=== PATIENT | male | born 1940 | race Caucasian/White ===

== ENCOUNTER 2021-01-04 12:40 | Outpatient (CLI) | payer MEDICARE, BC ==
[~2021-01-04 12:40] MED LIST: AMA1T PO; ASPI81TA52 PO; CHOL10002 PO; DULO-31 PO; FLO0.4C PO; LOSA100T57 PO; METF500T PO; NAPR220C15 PO; ROSU20TA2 PO; SAXA5TAB PO; VITA-268 PO
== END 2021-01-04 23:59 | disposition home or self-care (01) ==
LOC: VAS 12:40
PROVIDERS: ATTEND Orthopaedic Surgery
DX: M50.10 Cervical disc disorder with radiculopathy, unspecified cervical region (principal); M48.02 Spinal stenosis, cervical region; R29.898 Other symptoms and signs involving the musculoskeletal system
CPT/HCPCS: 93971

== ENCOUNTER 2021-09-19 10:22 | Day surgery (SDC) | payer MEDICARE, BC ==
[2021-09-14 15:54] LABS: BASOPHILS % (AUTO) 0.8 % (0-1); EOSINOPHILS # (AUTO) 0.1 X10'3 (0-0.9); EOSINOPHILS % (AUTO) 1.2 % (0-6); LYMPHOCYTES # (AUTO) 1.1 X10'3 (1.1-4.8); LYMPHOCYTES % (AUTO) 18.5 % (21-51); MEAN CORPUSCULAR HEMOGLOBIN 28.6 PG (27.0-31.0); MEAN CORPUSCULAR HGB CONC 33.3 g/dL (33.0-36.5); MEAN CORPUSCULAR VOLUME 85.8 FL (78-98); MEAN PLATELET VOLUME 8.4 FL (7.4-10.4); MONOCYTES # (AUTO) 0.4 X10'3 (0-0.9); NEUTROPHILS # (AUTO) 4.3 X10'3 (1.8-7.7); NEUTROPHILS % (AUTO) 72.5 % (42-75); PLATELET COUNT 234 X10'3 (140-440); RED CELL DISTRIBUTION WIDTH 16.3 % (11.5-14.5); WHITE BLOOD COUNT 5.9 X10'3 (4.5-11.0)
[2021-09-14 16:04] LABS: ALBUMIN 3.9 G/DL (3.4-5.0); ANION GAP 11 (8-16); BLOOD UREA NITROGEN 18 MG/DL (7-18); BUN/CREATININE RATIO 24.7 (5.4-32.0); CALCIUM 8.8 MG/DL (8.5-10.1); CHLORIDE 104 MMOL/L (99-107); CREATININE 0.73 MG/DL (0.60-1.10); GLUCOSE 158 MG/DL (70-104); POTASSIUM 4.4 MMOL/L (3.5-5.1); SODIUM 141 MMOL/L (135-145); TOTAL CARBON DIOXIDE 25.9 MMOL/L (24-32); eGFR > 90 ML/MIN
[2021-09-14 16:07] LABS: PARTIAL THROMBOPLASTIN TIME 26 SECONDS (22-32)
[2021-09-19] VITALS (8 sets, daily range): BP systolic 106–141; BP diastolic 53–75
[~2021-09-19] VITALS: Ht 182.9 cm; Wt 72.8 kg
[2021-09-19] MEDS ORDERED: LORazepam 0.5 MG tablet PO PRN (10:45)
[2021-09-19] MEDS ORDERED: diphenhydrAMINE 25mg capsule PO PRN (10:45)
[2021-09-19] MEDS ORDERED: normal saline 1,000 ML IV SCH (10:45)
[2021-09-19] MEDS ORDERED: VALS320T17 PO (11:45)
[2021-09-19] MEDS ORDERED: iohexol 350MG/ML 100ml bottle IV ONE (11:49)
[2021-09-19] MEDS ORDERED: LIDOcaine 1% (10mg/ml)w/preservative injection 20ml MDV ONE (11:49)
[2021-09-19] MEDS ORDERED: midazolam 1 mg/ML 2ml injection ONE (11:49)
[2021-09-19] MEDS ORDERED: fentaNYL/PF 50MCG/1 ML 2ML syringe ONE (11:49)
[2021-09-19] MEDS ORDERED: nitroGLYCERIN-Tridil 50MG/D5W 250 ML IV ONE (12:03)
[2021-09-19] MEDS ORDERED: heparin 1,000unit/ml 10ml vial 10 ML ONE (12:03)
[2021-09-19] MEDS ORDERED: verapamil 2.5 mg/ml inj IV ONE (12:03)
[2021-09-19] MEDS ORDERED: ondansetron/PF 4mg/2ml inj IV PRN (13:40)
[2021-09-19] MEDS ORDERED: HYDROcodone/acetaminophen 10/325mg tab PO PRN (13:40)
[2021-09-19] MEDS ORDERED: HYDROcodone/acetaminophen 5mg/325mg tablet PO PRN (13:40)
[2021-09-19] MEDS ORDERED: OXAZEpam 15mg capsule PO PRN (13:40)
[2021-09-19] MEDS ORDERED: proCHLORperazine 10 MG/2 ml inj IV PRN (13:40)
== END 2021-09-19 16:10 | disposition home or self-care (01) ==
LOC: SSTAY O 10:22
PROVIDERS: ATTEND Internal Medicine Interventional Cardiology
DX: I35.0 Nonrheumatic aortic (valve) stenosis (principal); I25.10 Atherosclerotic heart disease of native coronary artery without angina pectoris; I10 Essential (primary) hypertension; E11.9 Type 2 diabetes mellitus without complications; I65.29 Occlusion and stenosis of unspecified carotid artery; E78.5 Hyperlipidemia, unspecified; Z79.84 Long term (current) use of oral hypoglycemic drugs; Z79.899 Other long term (current) drug therapy; Z79.82 Long term (current) use of aspirin; Z95.5 Presence of coronary angioplasty implant and graft; Z87.891 Personal history of nicotine dependence; Z88.5 Allergy status to narcotic agent; Z85.46 Personal history of malignant neoplasm of prostate
CPT/HCPCS: 36415; 80048; 85025; 85610; 85730; 93005; 93454; 99152; C1769; C1894; J1644; J2001; J2250; J3010; Q0163; Q9967; A4620; A5120; J3490

== ENCOUNTER 2021-09-27 11:04 | Outpatient (CLI) | payer MEDICARE, BC ==
[~2021-09-27] VITALS: Ht 182.9 cm; Wt 72.6 kg
[~2021-09-27 11:04] MED LIST changes: -LOSA100T57 PO; -SAXA5TAB PO; +VALS320T17 PO
[2021-09-27] MEDS ORDERED: IODIXANOL 320 MG/ML INFUS..BTL 50ML IV ONE (11:34)
[2021-09-27] MEDS ORDERED: IODIXANOL 320 MG/ML INFUS..BTL 100ML IV ONE (11:34)
[2021-09-27] MEDS ORDERED: albuterol 2.5 MG/3 ML nebule NEB ONE (12:10)
[2021-10-20] MEDS ORDERED: PRED2.5T4 PO (10:41)
[2021-10-20] MEDS ORDERED: EMPA25TA PO (10:41)
[2021-10-20] MEDS ORDERED: LATA2.5D14 EACHEYE (10:41)
[2021-10-20] MEDS ORDERED: ACET-1008 PO (10:41)
== END 2021-09-27 23:59 | disposition home or self-care (01) ==
LOC: RAD 11:04
PROVIDERS: ATTEND Internal Medicine Cardiovascular Disease
DX: K57.90 Diverticulosis of intestine, part unspecified, without perforation or abscess without bleeding (principal); J43.9 Emphysema, unspecified; I70.0 Atherosclerosis of aorta; G95.89 Other specified diseases of spinal cord; I51.7 Cardiomegaly; J98.4 Other disorders of lung; R91.1 Solitary pulmonary nodule; R94.2 Abnormal results of pulmonary function studies; Z20.822 Contact with and (suspected) exposure to COVID-19
CPT/HCPCS: 71046; 71275; 74174; 87635; 94060; 94727; 94729; 94760; C9803; Q9967

== ENCOUNTER 2021-10-26 06:09 | Inpatient (IN) | payer MEDICARE, BC ==
[2021-10-20 10:53] LABS: EOSINOPHILS # (AUTO) 0.1 X10'3 (0-0.9); EOSINOPHILS % (AUTO) 1.5 % (0-6); LYMPHOCYTES # (AUTO) 0.9 X10'3 (1.1-4.8); LYMPHOCYTES % (AUTO) 18.3 % (21-51); MEAN CORPUSCULAR HEMOGLOBIN 28.5 PG (27.0-31.0); MEAN CORPUSCULAR HGB CONC 32.8 g/dL (33.0-36.5); MEAN CORPUSCULAR VOLUME 86.8 FL (78-98); MEAN PLATELET VOLUME 8.7 FL (7.4-10.4); MONOCYTES # (AUTO) 0.4 X10'3 (0-0.9); MONOCYTES % (AUTO) 8.4 % (2-12); NEUTROPHILS # (AUTO) 3.4 X10'3 (1.8-7.7); NEUTROPHILS % (AUTO) 70.8 % (42-75); PRE OP HEMATOCRIT 42.2 % (42.0-52.0); PRE OP HEMOGLOBIN 13.8 g/dL (14.0-17.9); PRE OP PLATELET COUNT 213 X10'3 (140-440); RED BLOOD COUNT 4.86 X10'6 (4.70-6.10); RED CELL DISTRIBUTION WIDTH 15.4 % (11.5-14.5)
[2021-10-20 11:04] LABS: CLARITY,URINE CLEAR (Clear); COLOR,URINE YELLOW (Yellow); GLUCOSE, URINE >=1000 mg/dl (Neg); KETONES,URINE NEGATIVE (Neg); LEUKOCYTE ESTERASE ,URINE NEGATIVE (Neg); NITRITES, URINE NEGATIVE (Neg); OCCULT BLOOD,URINE NEGATIVE (Neg); PROTEIN,URINE NEGATIVE (Neg); UROBILINOGEN,URINE 0.2 E.U/dL (0.2-1.0)
[2021-10-20 11:07] LABS: UA COLLECTION TYPE CLN CATCH MIDSTREAM
[2021-10-20 11:10] LABS: PRE OP PROTIME 10.8 SECONDS (9.0-12.0); SQUAMOUS EPITHELIAL CELL,UR FEW /LPF (FEW)
[2021-10-20 11:11] LABS: RBC,URINE 0-2 /HPF (0-2); WBC,URINE 0-4 /HPF (0-4)
[2021-10-20 11:12] LABS: BACTERIA,URINE NONE SEEN /HPF (Neg); HEMOGLOBIN A1C 8.7 % (4.5-6.2)
[2021-10-20 11:15] LABS: ALBUMIN 4.1 G/DL (3.4-5.0); ALBUMIN/GLOBULIN RATIO 1.5 (1.1-1.5); ALKALINE PHOSPHATASE 81 IU/L (46-116); BLOOD UREA NITROGEN 20 MG/DL (7-18); CHLORIDE 104 MMOL/L (99-107); PRE OP ALT 36 U/L (30-65); PRE OP ANION GAP 7 (8-16); PRE OP AST 21 U/L (10-37); PRE OP BILIRUB, TOTAL 0.5 MG/DL (0.0-1.0); PRE OP GLUCOSE 172 MG/DL (70-104); PRE OP POTASSIUM 4.4 MMOL/L (3.4-5.1); PRE OP SODIUM 138 MMOL/L (135-145); TOTAL CARBON DIOXIDE 26.8 MMOL/L (24-32); TOTAL PROTEIN 6.9 G/DL (6.4-8.2); eGFR > 90 ML/MIN
[2021-10-26] VITALS (30 sets, daily range): BP systolic 115–194; BP diastolic 47–84
[~2021-10-26] VITALS: Ht 182.9 cm; Wt 72.6 kg
[2021-10-26] MEDS: phenylephrine inj 50 MG in normal saline 250ml IV soln 245 ML IV SCH (05:30)
[2021-10-26] MEDS: nitroPRUSSIDE (NIPRIDE) (200MCG/ML) 100ML Drip IV SCH ×2 (05:30→23:19)
[~2021-10-26 06:09] MED LIST changes: +ACET-1008 PO; -DULO-31 PO; +EMPA25TA PO; +LATA2.5D14 EACHEYE; +PRED2.5T4 PO; +aspirin 325mg tablet PO ONE; +cefazolin/dext.iso 2gm/50ml 50 ML IV ONE; +famotidine 20mg tablet PO ONE; +ondansetron/PF 4mg/2ml inj IV PRN; +ringers solution, lacted 1,000 ML IV SCH
[2021-10-26] MEDS ORDERED: protamine sulfate 10mg/ml inj. ONE (06:46)
[2021-10-26] MEDS ORDERED: iohexol 350MG/ML 100ml bottle IV ONE (09:08)
[2021-10-26] MEDS ORDERED: iohexol 350 MG/ML 50ML vial IV ONE (09:08)
[2021-10-26] MEDS ORDERED: LIDOcaine 1% (10mg/ml)w/preservative injection 20ml MDV ONE (09:08)
[2021-10-26] MEDS ORDERED: heparin 1,000 UNITS/NS 500ml 1,500 ML ONE (09:09)
[2021-10-26] MEDS ORDERED: fentaNYL/PF 50MCG/1 ML 2ML syringe ONE ×2 (09:22→09:46)
[2021-10-26] MEDS ORDERED: midazolam 1 mg/ML 2ml injection ONE ×2 (09:23→09:34)
[2021-10-26] MEDS ORDERED: LIDOcaine 2% (20mg/ml) 5ml vial ONE (09:46)
[2021-10-26] MEDS ORDERED: propofol inj 20 ML IV ONE (09:46)
[2021-10-26] MEDS ORDERED: heparin 1,000unit/ml 10ml vial 10 ML ONE (10:41)
[2021-10-26] MEDS ORDERED: phenylephrine 10mg/ml inj. ONE (10:41)
[2021-10-26] MEDS ORDERED: docusate sod 100mg capsule PO PRN (10:45)
[2021-10-26] MEDS ORDERED: dextrose 50%-water 50ml dispensing syringe IV PRN ×2 (10:45)
[2021-10-26] MEDS ORDERED: magnesium 4gm in 100ml NS 100 ML IV PRN (10:45)
[2021-10-26] MEDS ORDERED: glucagon, human recombinant 1mg kit SUBCUT PRN (10:45)
[2021-10-26] MEDS ORDERED: MESSAGE TO PHARMACY PO ONE (10:45)
[2021-10-26] MEDS ORDERED: potassium Cl 20 mEq SR tablet PO PRN (10:45)
[2021-10-26] MEDS ORDERED: dextrose ORAL solution 15 GM/59 ML bottle PO PRN ×2 (10:45)
[2021-10-26] MEDS ORDERED: potassium CL 10mEq/100ml bag 100 ML IV PRN (10:45)
[2021-10-26] MEDS ORDERED: hydrALAZINE 20mg/ml inj. IV PRN (10:45)
[2021-10-26] MEDS ORDERED: insulin Lispro (HumaLOG) vial - multi-dose SQ SCH (10:45)
[2021-10-26] MEDS ORDERED: ondansetron/PF 4mg/2ml inj IV PRN ×2 (10:45→10:50)
[2021-10-26] MEDS ORDERED: insulin regular, human U-100 3ml vial - multi-dose SQ SCH (10:45)
[2021-10-26] MEDS ORDERED: proCHLORperazine 10 MG/2 ml inj IV PRN (10:45)
[2021-10-26] MEDS ORDERED: labetalol 20mg/4ml (5mg/ml) syringe IV PRN (10:45)
[2021-10-26] MEDS: normal saline 1000ml 1,000 ML IV SCH ×2 (10:45→20:45)
[2021-10-26] MEDS ORDERED: acetaminophen 325mg tablet PO PRN ×2 (10:45→14:20)
[2021-10-26] MEDS ORDERED: diphenhydrAMINE 25mg capsule PO PRN (10:45)
[2021-10-26] MEDS ORDERED: potassium Cl 40MEQ/1/2NS 520ml 520 ML IV PRN (10:45)
[2021-10-26] MEDS ORDERED: ALPRAZolam 0.25mg tablet PO PRN (10:45)
[2021-10-26] MEDS ORDERED: magnesium 2GM in 50ml NS 50 ML IV PRN (10:45)
[2021-10-26] MEDS ORDERED: pantoprazole 40mg Tablet.DR PO PRN (10:45)
--- NOTE | 2021-10-26 10:46 | NUR ---
Received from OR via BED, accompanied by Anesthesiologist NANCIE and report given by Anesthesiolgist. PT. ARRIVED ON 10 L IOR VIA MASK. VSS. ART LINE ZEROED. BILATERAL GROIN DRESSINGS CDI. SOFT TO TOUCH. PT. MOVING LEGS A LOT IN TRANSPORT. ANESTHESIA GAVNE APIN MED TO HELP. L. FA 18 G IV CDI INFUSING LR AT 100 ML/HR. L. WRIST ART LINE IN PLACE AND FUNCTIONING. PALPABLE PULSES IN ALL EXTREMITIES NOTED. SENSATION AND MOVEMENT INTACT. Addendum: 10/26/21 at 1117 by Danielle Araujo RN Amended: Links added.
[2021-10-26] MEDS ORDERED: morphine 2 MG/ML inj. syringe IV PRN (10:50)
[2021-10-26] MEDS ORDERED: ringers solution, lacted 1,000 ML IV SCH (10:50)
[2021-10-26] MEDS ORDERED: HYDROmorphone/PF 0.2 MG/ML SYRINGE IV PRN (10:50)
[2021-10-26] MEDS ORDERED: morphine 2 MG/ML inj. syringe ONE (10:53)
--- NOTE | 2021-10-26 14:06 | NUR ---
ALL DC CRITERIA MET. PT. DENIED PAIN. VSS. ABLE TO TAKE FLUIDS. VOID X 200 ML IN URINAL. LR AT 100 ML/HR IN L. FA IV. CDI. ART LINE REMOVED. PALPABLE PULSES. B. GROIN DRESSINGS CDI. L. SIDE DIME SIZE BLEEDING MARKED ON DRESSING. PT. VERY ACTIVE ON TRANSPORT FROM OR. REPORT CALLED TO [facility]. ALL QUESTIONS ANSWERED. TRANSPORT WITH MONITOR. PT. TOLERATED WELL. 3 BAGS OF BELONGINGS TO ROOM. BED IN LOW. CALL LIGHT IN REACH. Addendum: 10/26/21 at 1440 by Danielle Araujo RN Amended: Links added.
[2021-10-26] MEDS: HYDROcodone/acetaminophen 5mg/325mg tablet PO PRN ×2 (14:53→20:51)
[2021-10-26] MEDS: sod chloride 0.9% 10ml flush syringe IV SCH (16:00)
[2021-10-26] MEDS: ceFAZolin 1GM/D5W- ADD-VANTAGE 50 ML IV SCH (17:35)
--- NOTE | 2021-10-26 18:11 | NUR ---
Patient in room MED 316. I have received report from ADELA TAPIA and had the opportunity to ask questions and assume patient care.
[2021-10-26] MEDS ORDERED: glimepiride 1 MG tablet PO SCH (20:00)
[2021-10-26] MEDS: metFORMIN 500mg tablet PO SCH (20:50)
[2021-10-26] MEDS: vancomycin/NS 1 GM ADD-VANTAGE 250 ML IV SCH (20:52)
[2021-10-26] MEDS ORDERED: insulin glargine (Lantus) pen - multi-dose SQ SCH (21:00)
[2021-10-26] MEDS ORDERED: latanoprost 0.005% 2.5ml ophthalmic drops EACHEYE SCH (21:00)
[2021-10-26] MEDS ORDERED: tamsulosin 0.4mg capsule PO SCH (21:00)
[2021-10-27] MEDS: ceFAZolin 1GM/D5W- ADD-VANTAGE 50 ML IV SCH ×2 (00:31→07:33)
[2021-10-27] MEDS: sod chloride 0.9% 10ml flush syringe IV SCH ×2 (00:31→07:42)
[2021-10-27 02:00] VITALS: BP 143/68
[2021-10-27] MEDS: phenylephrine inj 50 MG in normal saline 250ml IV soln 245 ML IV SCH (03:47)
--- NOTE | 2021-10-27 06:04 | NUR ---
Problems reprioritized. Patient report given, questions answered & plan of care reviewed with ADELA TAPIA.
[2021-10-27 06:30] VITALS: BP 152/64
[2021-10-27 06:42] LABS: BASOPHILS % (AUTO) 0.6 % (0-1); EOSINOPHILS # (AUTO) 0.1 X10'3 (0-0.9); EOSINOPHILS % (AUTO) 1.8 % (0-6); HEMATOCRIT 36.4 % (42.0-52.0); HEMOGLOBIN 12.2 g/dl (14.0-17.9); LYMPHOCYTES % (AUTO) 22.1 % (21-51); MEAN CORPUSCULAR HEMOGLOBIN 28.8 PG (27.0-31.0); MEAN CORPUSCULAR HGB CONC 33.5 g/dL (33.0-36.5); MEAN PLATELET VOLUME 8.3 FL (7.4-10.4); MONOCYTES # (AUTO) 0.6 X10'3 (0-0.9); MONOCYTES % (AUTO) 12.1 % (2-12); NEUTROPHILS % (AUTO) 63.4 % (42-75); PLATELET COUNT 175 X10'3 (140-440); RED BLOOD COUNT 4.23 X10'6 (4.70-6.10); RED CELL DISTRIBUTION WIDTH 15.2 % (11.5-14.5); WHITE BLOOD COUNT 4.7 X10'3 (4.5-11.0)
[2021-10-27] MEDS: normal saline 1000ml 1,000 ML IV SCH (06:45)
[2021-10-27 07:09] LABS: ALANINE AMINOTRANSFERASE 23 U/L (12-78); ALBUMIN 3.2 G/DL (3.4-5.0); ALBUMIN/GLOBULIN RATIO 1.3 (1.1-1.5); ALKALINE PHOSPHATASE 61 IU/L (46-116); ANION GAP 7 (8-16); ASPARTATE AMINO TRANSFERASE 16 U/L (10-37); BILIRUBIN,TOTAL 0.4 MG/DL (0.1-1.0); BLOOD UREA NITROGEN 16 MG/DL (7-18); BUN/CREATININE RATIO 29.1 (5.4-32.0); CALCIUM 8.3 MG/DL (8.5-10.1); CHLORIDE 105 MMOL/L (99-107); CREATININE 0.55 MG/DL (0.60-1.10); GLUCOSE 92 MG/DL (70-104); POTASSIUM 3.6 MMOL/L (3.5-5.1); SODIUM 136 MMOL/L (135-145); TOTAL CARBON DIOXIDE 24.4 MMOL/L (24-32); TOTAL PROTEIN 5.7 G/DL (6.4-8.2); eGFR > 90 ML/MIN
[2021-10-27] MEDS: metFORMIN 500mg tablet PO SCH (07:31)
[2021-10-27] MEDS: vancomycin/NS 1 GM ADD-VANTAGE 250 ML IV SCH (07:42)
[2021-10-27] MEDS ORDERED: EMPAGLIFLOZIN 25 MG PO SCH (08:00)
[2021-10-27] MEDS ORDERED: cholecalciferol (vitamin D3) 1,000 unit (25mcg) tablet PO SCH (08:00)
[2021-10-27] MEDS ORDERED: aspirin 81mg, enteric-coated 1 TAB TABLET.DR PO SCH (08:00)
[2021-10-27] MEDS ORDERED: vitamin B comp w/Vit. C tab 1 TAB TABLET PO SCH (08:00)
[2021-10-27] MEDS ORDERED: atorvastatin 20mg tablet PO SCH (08:00)
[2021-10-27] MEDS ORDERED: losartan 50mg tablet PO SCH (08:00)
[2021-10-27] MEDS ORDERED: predniSONE 5mg tablet PO SCH (08:00)
[2021-10-27 10:30] VITALS: BP 153/60
--- NOTE | 2021-10-27 12:24 | NUR ---
Pt stable for D/C Pt stable for D/C per MD orders. All D/C ppwk was reviewed with patient and patient . All questions, comments, concerns were answered at this time. Pt verbalized understanding and does not have any questions at this time. Re-interated the importance of follow up appts. PIV was removed from L FA - pt tolerated well. Tele box 49 was removed from pt and brought back to CRN / nursing station. NO new RX at this time. All personal belongings were sent with patient. Pt was wheeled out in W/C by nursing staff to private vehicle where was waiting.
== END 2021-10-27 12:15 | disposition home or self-care (01) | DRG 267 ==
LOC: UNDOADMIN 06:09 → PAS IN 06:09 → MED 3N 13:23
PROVIDERS: ADMIT Internal Medicine Cardiovascular Disease; ATTEND Internal Medicine Cardiovascular Disease
PROC: B41D1ZZ Fluoroscopy of Aorta and Bilateral Lower Extremity Arteries using Low Osmolar Contrast (ICD-10-PCS; 2021-10-26)
PROC: 02RF38Z Replacement of Aortic Valve with Zooplastic Tissue, Percutaneous Approach (ICD-10-PCS; principal; 2021-10-26 09:22)
DX: I35.0 Nonrheumatic aortic (valve) stenosis (principal); Z00.6 Encounter for examination for normal comparison and control in clinical research program; E11.9 Type 2 diabetes mellitus without complications; E78.5 Hyperlipidemia, unspecified; I10 Essential (primary) hypertension; M35.3 Polymyalgia rheumatica; I25.10 Atherosclerotic heart disease of native coronary artery without angina pectoris; Z85.46 Personal history of malignant neoplasm of prostate; Z95.5 Presence of coronary angioplasty implant and graft
CPT/HCPCS: 33361; 36415; 71045; 76937; 80053; 81001; 82948; 83036; 83735; 83880; 85025; 85347; 85610; 85730; 86885; 86920; 87081; 93005; 93308; A4618; A6258; A6449; C1756; C1760; C1769; C1894; G0378; J0690; J1644; J1815; J2250; J2270; J2370; J2704; J2720; J3010; J3370; J3490; J7040; J7050; J7120; J7512; P9016; Q9967; U0003; U0005